=== PATIENT | male | born 1935 | race Caucasian/White ===

== ENCOUNTER 2023-07-22 09:22 | Inpatient (IN) | payer MEDICARE ==
[~2023-07-22] VITALS: Ht 180.3 cm; Wt 70.3 kg
[2023-07-22 10:48] LABS: BASOPHILS ABSOLUTE AUTO 0.11 K/mm3 (0.00-0.23); BASOPHILS PERCENT AUTO 1 % (0-2); EOSINOPHILS ABSOLUTE AUTO 0.12 K/mm3 (0.00-0.68); EOSINOPHILS PERCENT AUTO 1 % (0-6); Hematocrit 47.4 % (37.0-53.0); Hemoglobin 15.8 g/dL (13.5-17.5); IMMATURE GRAN ABSOLUTE AUTO 0.03 K/mm3 (0.00-0.10); IMMATURE GRAN PERCENT AUTO 0 % (0-1); LYMPHOCYTES PERCENT AUTO 17 % (21-46); MONOCYTES ABSOLUTE AUTO 0.72 K/mm3 (0.16-1.47); MONOCYTES PERCENT AUTO 8 % (4-13); Mean Corpuscular HGB 29.4 pg (26.0-34.0); Mean Corpuscular HGB Conc 33.3 g/dL (31.5-36.5); Mean Corpuscular Volume 88 fL (80-100); NEUTROPHILS PERCENT AUTO 73 % (41-73); Platelet Count 213 K/mm3 (150-400); RDW Coefficient Variation 13.5 % (11.7-14.2); RDW Standard Deviation 43.8 fL (35.1-46.3); Red Blood Cell Count 5.38 M/mm3 (4.30-5.90); White Blood Cell Count 9.08 K/mm3 (4.00-11.30)
[2023-07-22 10:57] LABS: Bun/Creatinine Ratio 19.8 (12.0-20.0); Calcium, Blood 8.8 mg/dL (8.5-10.1); Creatinine, Blood 1.01 mg/dL (0.60-1.20); Potassium, Blood 4.6 mmol/L (3.5-5.5)
[2023-07-22] MEDS ORDERED: OMEP20ER PO (13:38)
[2023-07-22] MEDS ORDERED: BENZONATATE100 MG PO (13:39)
--- NOTE | 2023-07-22 19:10 | NUR ---
Pt arrived to the room at approx 6 pm, chest tube noted in place, and to water seal with clear serosanginous drainage noted in the tubing. Pt was tachypneic at rest, and dyspneic with standing and transferring to the bed. Spo2 80% after the activity on room air. Oxygen was applied and his spo2 recovered to 99% , O2 delivery 3 l/min. On room air at rest spo2 was 93%. Oxygen titrated to 2 l/min to maintain spo2 greater than 93%. No creptus noted; however, lung sounds are diminished on the left side and with bialteral fine inspiratory crackles in the posterior bases. No cough. He remains tachypneic at rest, but able to easily carry on conversation and states that his pain level is 3/10. His Yadira is at the bedside. Pt declined any food but did get some cranberry juice and water per his request. Pt does not have any teeth. States that they were pulled last year and since then he has lost 80 pounds. He has dentures but does not wear them due to improper fit since his weight loss.
[2023-07-22 20:34] VITALS: BP 131/81
--- NOTE | 2023-07-22 22:18 | NUR ---
ASSUMPTION OF CARE ASSUMED CARE AT APPROX 1900. PT AOX4, PLEASANT, COOPERATIVE W/ CARE AND RECEPTIVE TO EDUCATION. [place]. DROWSY, EASILY AROUSABLE TO VERBAL STIMULI. AT BEDSIDE REPORTING THAT THE PT HAS NOT SLEPT FOR APPROX 3 DAYS. VSS. PT CURRENTLY ON 1L VIA NC WHILE SLEEPING, SATS >95%. BREATHING UNLABORED AT REST. CHEST TUBE PATENT, DRESSING C/D/I, NONFLUCTUATING, MINIMAL SEROSANGUINOUS DRAINAGE. REPORTS MILD, TOLERABLE, PAIN AT INSERTION SITE, PLAN TO MEDICATE PER EMAR PRN. TELEMETRY SHOWING SR 90'S. BP STABLE. VOIDING. BEDREST AT THIS TIME D/T RECENT CHEST TUBE PLACEMENT. AT BEDSIDE ASSISTING W/ CARE. CALL LIGHT IN REACH.
[2023-07-23 00:02] VITALS: BP 113/78
[2023-07-23 04:00] LABS: Hemoglobin 14.5 g/dL (13.5-17.5); Mean Corpuscular HGB 29.5 pg (26.0-34.0); Mean Corpuscular HGB Conc 33.7 g/dL (31.5-36.5); Mean Corpuscular Volume 88 fL (80-100); Mean Platelet Volume 8.1 fL (9.1-12.4); Platelet Count 165 K/mm3 (150-400); RDW Coefficient Variation 13.2 % (11.7-14.2); RDW Standard Deviation 42.8 fL (35.1-46.3); Red Blood Cell Count 4.91 M/mm3 (4.30-5.90); White Blood Cell Count 7.84 K/mm3 (4.00-11.30)
[2023-07-23 04:01] VITALS: BP 115/82
[2023-07-23 04:25] LABS: Bun/Creatinine Ratio 20.2 (12.0-20.0); Calcium, Blood 8.2 mg/dL (8.5-10.1); Creatinine, Blood 1.04 mg/dL (0.60-1.20); Potassium, Blood 4.2 mmol/L (3.5-5.5)
--- NOTE | 2023-07-23 04:48 | NUR ---
SHIFT SUMMARY NO ACUTE CHANGES SINCE ASSUMPTION OF CARE. PT REMAINED AOX4, SLEPT T/O SHIFT, EASILY AROUSABLE TO VERBAL STIMULI. VSS. TELEMETRY CONTINUING TO SHOW SR 80'S. PT ON 1L VIA NC WHILE SLEEPING, SATS >90%. DECREASED WORK OF BREATHING WHILE RESTING NOTED. CHEST TUBE REMAINED PATENT, MINIMAL SEROSANGUINOUS DRAINAGE. DRESSING C/D/I. VOIDING W/ URINAL. NO BM THIS SHIFT. AT BEDSIDE T/O, ASSISTING W/ CARE PRN. PT CURRENTLY RESTING W/ EYES CLOSED, RESPIRATIONS EVEN AND UNLABORED. NO SIGNS OF DISTRESS NOTED. WILL REPORT TO ONCOMING RN.
[2023-07-23 07:30] VITALS: BP 118/78
--- NOTE | 2023-07-23 08:13 | NUR ---
AM NOTE PT IS ALERT AND ORIENTED X 4, HE IS [place]. HIS IS AT BEDSIDE. CHEST TUBE IS CONNECTED TO LOW SUCTION W/ OCCASSIONAL BUBBLING OCCURING, IT APPEARS TO BE DRAINING SMALL AMOUNT OF RED OUTPUT. PT DENIES FEELINGS OF SOB, SPO2 96% VIA RA, LUNGS ARE CLEAR. CHEST XR STILL PENDING. CHEST TUBE IS LOCATED ON L CHEST WALL AND IS COVERED W/ DRESSING THAT IS D/C/I. HR AND BP STABLE. CALL LIGHT IS W/IN REACH.
[2023-07-23 10:53] VITALS: BP 111/68
[2023-07-23 15:59] VITALS: BP 116/79
--- NOTE | 2023-07-23 16:48 | NUR ---
SHIFT SUMMARY PT IS ALERT AND ORIENTED X 4, HE IS HARD OF HEARING AND IS ABLE TO MAKE HIS NEEDS KNOWN. BP AND HR STABLE, SPO2 MAINTAINED >95% VIA RA, PER NOC RN REPORT PT NEEDED 1-2 L VIA NC TO MAINTAIN 02 >95%. CHEST TUBE IS CONNECTED TO SUCTION PER EMAR ORDERS AND IS DRAINING SMALL AMOUNT OF SANGUINEOUS OUTPUT. PT DENIES FEELINGS OF PAIN AT CHEST TUBE INSERTION SITE, SITE IS FREE OF CREPITUS AND IS COVERED W/ ADHESIVE SURGICAL DRESSING THAT IS D/C/I. PT DENIES FEELINGS OF CHEST PAIN/PRESSURE, FEELING SOB, LIGHTHEADED/DIZZY WELL NAUSEA. HE HAS USED THE BEDSIDE URINAL WELL THE BEDSIDE COMMODE TO VOID. HE WAS A SBA TO COMMODE AND IS NOW SITTING UP IN RECLINER CHAIR. IV IS SALINE LOCKED. PT NOW APPEARS TO BE SLEEPING COMFORTALBY IN RECLINER CHAIR. CALL LIGHT IS W/IN REACH.
[2023-07-23 19:50] VITALS: BP 114/73
[2023-07-24 00:59] VITALS: BP 109/72
[2023-07-24 04:11] VITALS: BP 99/74
--- NOTE | 2023-07-24 06:03 | NUR ---
End of shift note. Pt has rested for much of the shift. No complaints of pain or SOB. CT remains patent to suction. Pt was on 1L O2 when staff arrived, Pt was shortly able to wean to room air and has remained on room air all shift. Pt is able to make needs known, call light is within reach.
[2023-07-24 08:14] VITALS: BP 117/73
[2023-07-24 15:20] VITALS: BP 90/71
--- NOTE | 2023-07-24 16:32 | NUR ---
SHIFT SUMMARY PT A&OX4, [place]. SP02>90% ON RA. 2L NC FOR COMFORT WHILE EATING PER PT REQUEST FOR COMFORT. CHEST TUBE TO SUCTION. PT DENIES SOB. THIMBLE PRESS OPERATOR IN ROOM TO ASSESS THIS SHIFT. THIMBLE PRESS OPERATOR W/ ORDERS FOR CHEST CT. SEE RESULTS. MD LOZANO IN ROOM TO ASSESS. MD LOZANO W/ ORDERS TO MAKE PT MEDICAL STATUS NO TELE. PT UP IN RECLINER MOST OF SHIFT. IN ROOM THIS AFTERNOON TO VISIT. CALL LIGHT IN REACH.
[2023-07-24 20:45] VITALS: BP 111/73
[2023-07-25 04:50] VITALS: BP 115/76
--- NOTE | 2023-07-25 05:33 | NUR ---
End of shift note. Pt seems to have had a decent amount of sleep overnight. No complaints of pain or SOB. CT remains to suction, minimal output. PO intake has been encouraged overnight. is at bedside. Pt able to make needs known, call light is within reach.
[2023-07-25 15:38] VITALS: BP 117/66
--- NOTE | 2023-07-25 17:59 | NUR ---
SHIFT SUMMARY; ASSUMED CARE AT 0700, A/A/OX4. PLEASANT AND COOPERATIVE WITH CARE. REPOSITIONS SELF IN BED, UP TO BEDSIDE COMMODE INDEPENDANTLY. SPOUSE AT BEDSIDE. CHEST TUBE IN PLACE TO LOW SUCTION TO WATER SEAL, NO CREPITIS, DRESSING C/D/I. WILL CONTINUE TO MONITOR AND TREAT UNTIL CHANGE OF SHIFT.
[2023-07-25 21:00] VITALS: BP 127/77
[2023-07-26 03:25] VITALS: BP 110/71
[2023-07-26 04:05] LABS: BASOPHILS ABSOLUTE AUTO 0.11 K/mm3 (0.00-0.23); BASOPHILS PERCENT AUTO 1 % (0-2); EOSINOPHILS ABSOLUTE AUTO 0.42 K/mm3 (0.00-0.68); EOSINOPHILS PERCENT AUTO 5 % (0-6); Hematocrit 44.2 % (37.0-53.0); Hemoglobin 14.9 g/dL (13.5-17.5); IMMATURE GRAN ABSOLUTE AUTO 0.04 K/mm3 (0.00-0.10); IMMATURE GRAN PERCENT AUTO 1 % (0-1); LYMPHOCYTES ABSOLUTE AUTO 1.98 K/mm3 (0.84-5.20); LYMPHOCYTES PERCENT AUTO 25 % (21-46); MONOCYTES PERCENT AUTO 9 % (4-13); Mean Corpuscular HGB 29.3 pg (26.0-34.0); Mean Corpuscular HGB Conc 33.7 g/dL (31.5-36.5); Mean Corpuscular Volume 87 fL (80-100); Mean Platelet Volume 7.9 fL (9.1-12.4); NEUTROPHILS ABSOLUTE AUTO 4.75 K/mm3 (1.96-9.15); NEUTROPHILS PERCENT AUTO 59 % (41-73); Platelet Count 187 K/mm3 (150-400); RDW Coefficient Variation 12.9 % (11.7-14.2); RDW Standard Deviation 40.7 fL (35.1-46.3); Red Blood Cell Count 5.09 M/mm3 (4.30-5.90)
[2023-07-26 05:54] LABS: Bun/Creatinine Ratio 23.4 (12.0-20.0); Calcium, Blood 8.6 mg/dL (8.5-10.1); Creatinine, Blood 0.9 mg/dL (0.60-1.20); Potassium, Blood 4.3 mmol/L (3.5-5.5)
--- NOTE | 2023-07-26 06:21 | NUR ---
SHIFT SUMMARY PATIENT ALERT AND ORIENTED X4, HARD OF HEARING, INDEPENDENT TO THE BEDSIDE COMMODE. HAD NO COMPLAINTS OF PAIN. BECOMES DYSPNIC WITH ACTIVITY, SPO2 >90% ON 4 LITERS O2 VIA NC. VITAL SIGNS STABLE. MINIMAL DRAINAGE NOTED FROM CHEST TUBE. NO ACUTE ISSUES NOTED OVERNIGHT. WILL CONTINUE TO MONITOR. CALL LIGHT WITHIN REACH.
[2023-07-26 07:31] VITALS: BP 94/66
--- NOTE | 2023-07-26 10:13 | NUR ---
87 year old male admitted to the hospital for Pnuemothorax. Pt's medical history and comorbidities include: Pulmonary Fibrosis, and Prostated Cancer (untreated). Spoke with Primary RN Deonna and discussed case. Pt's Pnuemothorax is not improving. Webbing Inspector presented options to Pt. Pt is expressing wanting to go home. Options are remaining in the hospital to allow more time for improvement of pneumothorax, 2nd chest tube placement, thoravent placement, or hospice. Pt resting in bed and is A&OX4. Pt's spouse is at bedside. Engaged in therapeutic discussion regarding goals of care. Pt reports noticing a decline in his health and ability to do things over a significant amount of time now. Pt states knowing his time is short. Pt does report wanting to get home and does not want to remain in the hospital to see if his pneumothorax improves. He states being told chances are low. Discussed options. Pt is reporting wanting the thoravent. Discussed considering hospice along with thoravent if appropriate. Pt will consider. Pt reports having a daughter who lives out of state and spouse has a son who lives in [place]. Called and spoke with hospice agencies and discussed thoravent. Agencies to get back with this RN. Palliative Care will remain available
--- NOTE | 2023-07-26 12:30 | NUR ---
F/U supportive visit. Joint visit with Primary RNs. Options discussed further including remaining in the hospital, additional chest tube, and thoravent. Discussed considering hospice if Pt elects going home with thoravent. Primary RN discusses further regarding choices and encourages Pt to discuss further with spouse. If Pt chooses, [facility] is willing to admit Pt onto services with thoravent. Palliative Care will remain available
--- NOTE | 2023-07-26 15:17 | NUR ---
TRANSFER NOTE: REPORT OF PT CARE GIVEN TO QUINTEN SANTILLAN. PT TRANSPORTED UPSTAIRS BY 2 CNAS. PT AND FAMILY HAVE BEEN EDUCATED ABOUT THE CHANGE IN STATUS AND ROOM ROOM. NO QUESTIONS OR CONCERNS AT THIS TIME.
[2023-07-26 15:38] VITALS: BP 101/74
--- NOTE | 2023-07-26 17:53 | NUR ---
SHIFT SUMMARY; ARMANDO ARRIVED TO MED FLOOR FROM PCU THIS LATE AFTERNOON. HE IS AO X 4 ON ARRIVAL. COMES VIA WHEEL CHAIR. PLEUROVAC INTACT TO LOW INTERMITTENT SUCTION. CHEST TUBE SITE CLEAN DRY AND SMALL AIR LEAK NOTED. PER REPORT FAMILY MAY BE DECIDING ON COMFORT CARE AND HOSPICE. SPOUSE WILL SREMAIN AT BEDSIDE AND ASSIST ARMANDO TO BEDSIDE COMMODE AND BACK. IV TO LEFT AC REINFORCED WITH PAPERTAPE. NO SKIN ISSUES NOTED OTHER THAN CHEST TUBE SITE. SCATTERED SCABS AND DISCOLATION TO LOWER EXTREMEITIES. VITAL SIGNS WNL ON ARRIVAL. WILL REMAIN AVAILABLE FOR THIS PATIENT FOR ANY WANTS OR NEEDS THAT COME UP PRIOR TO REPORT AT SHIFT CHANGE TO NOC SHIFT RN.
[2023-07-26 19:18] VITALS: BP 106/61
[2023-07-27 02:45] VITALS: BP 98/60
--- NOTE | 2023-07-27 05:53 | NUR ---
SHIFT SUMMARY BEDSIDE REPORT DONE, PT LAYING IN BED, CHEST TUBE IN PLACE- PT TOOK SCHEDULED HS MEDS WITHOUT PROBLEMS, PT AT BEDSIDE, PT SLEPT T/O NIGHT WITHOUT C/O PAIN, NO S/S SOB- PT USED CALL LIGHT APPROPRIATELY, 0400 PT SITTING UP IN BED VISITING WITH - CHEST TUBE OUTPUT = 35ML IN SHIFT SS OUTPUT- CHEST TUBE BANDAGE TO LEFT SIDE = C/D&I-
[2023-07-27 07:17] VITALS: BP 102/68
--- NOTE | 2023-07-27 10:19 | NUR ---
Brief supportive visit. RN Consumer Loan Specialist Sravani at bedside discussing D/C options. Pt has elected to pursue AIM program through [place]. Eliana will coordinate D/C plan. No concerns reported. Ended visit to allow Sravani to continue conversation. Palliative Care will remain available
[2023-07-27] MEDS ORDERED: GUAI600T33 PO (10:56)
[2023-07-27] MEDS ORDERED: ALBU2.5V5 INH (10:56)
[2023-07-27] MEDS ORDERED: IPRAT-ALBUT 0.5-3 ML INH (10:57)
--- NOTE | 2023-07-27 12:24 | NUR ---
PALLIATIVE CARE, FARM FACILITY MANAGER, HOSPITALIST, AND RN AT BEDSIDE. CLARIFICATION NEEDED WITHIN THE TEAM ABOUT REMOVAL OF CHEST TUBE, WHAT TO EXPECT UPON REMOVAL, DISCHARGE DISPOSION AND NEEDS AFTER DISCHARGE. CONVERSATION ABOUT POSSIBILITY OF IMENINT AFTER REMOVAL OF THE CHEST TUBE. PATIENT AND SPOUSE VERBALISE UNDERSTANDING OF RISKS. COMFORT CARE ORDERS PLACED. PT WILL GO HOME WITH HOSPICE PENDING SET UP. TUBE IS REMOVED. PT IS SITTING UP IN BED EATING, SPOUSE IS AT BEDSIDE. PT DENIES PAIN AT THIS TIME
--- NOTE | 2023-07-27 13:08 | NUR ---
F/U visit this afternoon. Molder Sweep at bedside discussing plan to D/C chest tube. He explains risks and consequences to D/C of chest tube. Pt and spouse verbalizes understanding. Pt reports wishes remain the same and would like chest tub pulled. This RN discussed potential plan for home with hospice pending response to D/C of chest tube. discovery guide Odette places comfort care order and comfort care order set per V/O from Molder Sweep. Spoke with RN Tool And Die Inspector Maggy and discussed case. Referrals for hospice has been sent out to agencies. Palliative Care will remain available
--- NOTE | 2023-07-27 13:25 | NUR ---
PT SITTING UP IN BED CONVERSING WITH . DENIES PAIN. REPORTS SOB AND COUGH. SPO2 85% 5L
--- NOTE | 2023-07-27 15:45 | NUR ---
Spiritual care visit conducted. Patient is lying in bed and alert. His spouse, Yadira is bedside. They tell stories about his medical history, his tammy journey and how they met and 37 yrs ago. We talk about patient's beliefs about the afterlife, and the peace he has about and dying. He tells me his concerns about how Yadira will do without him, especially with her inability to drive (due to a stroke several years ago). I conduct a life review, normalize their fears and feelings and provide therapeutic listening, theological insights, gentle guidance counselor and prayer. Patient and Yadira reponded well and showed signs of being comforted. They both voice much appreciation for the time and care. I will continue to remian available to patient and family.
--- NOTE | 2023-07-27 16:27 | NUR ---
SHIFT SUMMARY PT IS ALERT AND ORIENTED X4. PT WAS UP TO THE BEDSIDE COMMODE. SEVERE DYSPNEA. 88% ON 5L. DENIES DISCOMFORT OTHER THAN WHEN HE COUGHS. PT DECLINED NEED TO FOR MORPHINE. INFORMED PATIENT THAT MORPHINE ALSO DECREASED NEED FOR O2. PT RESPECTFULLY DECLINES MEDICATION AT THIS TIME. SPOUSE IS AT BEDSIDE. BOTH SEEM TO BE IN GOOD SPIRITS. PT IS ABLE TO MAKE NEEDS KNOWN HOWEVER I AM WORRIED HE IS BEING STOIC.
--- NOTE | 2023-07-28 05:22 | NUR ---
SHIFT SUMMARY PT LAYING IN BED AND AT BESIDE DURING BEDSIDE REPORT- PT SOB WHILE TALKING- EDUCATED PT OF MORPHINE AND AIR HUNGER, PT REPORTED FEELING GOOD AT THAT TIME - PT COMPLAINED OF INCREASED SECRETIONS- SCOLOPAMINE PATCH APPLIED TO BEHIND RIGHT EAR- PT SWALLOWED MUCINEX WITHOUT PROBLEMS- 0005 GAVE ROXANOL 5MG - PT USED CALL LIGHT AND REQUESTED FOR AIR HUNGER- PT TOLERATED ROXANOL WELL, PT UP TO BSC AND HAD DECREASED SOB WITH ACITIVITY
--- NOTE | 2023-07-28 08:01 | NUR ---
Spiritual care visit conducted. Patient is lying in bed and alert. Yadira, Pt's spouse, is bedside. They explain about their hopes to get the patient home today on hospice and that they are just waiting for medical equipment to be delivered. They talk about the solid sleep that they both got last night and that they are refreshed to make the journey home. They talk about the gratitude they have to be able to enjoy this day together. I celebrate this victory with them and provide a prayer of thanksgiving and gratitude and also a blessing as they work on the d/c today. Patient and spouse voice their appreciation for the spiritual care given. I willcontinue to remain available to patient and family
--- NOTE | 2023-07-28 10:19 | NUR ---
Brief supportive visit. Pt trasfering from bed to transport chair as he is D/C home with hospice. Pt reports no concerns at this time. Palliative Care will remain available
--- NOTE | 2023-07-28 10:38 | NUR ---
DISCHARGE PT DISCHARGED HOME WITH HOSPICE. FAMILY AT BEDSIDE. PT HAS OWN O2 CONCENTRATOR. LEFT ALERT AND ORIENTED X4. 4L NC. SBA.
== END 2023-07-28 10:34 | disposition home or self-care (01) | DRG 199 ==
LOC: ER 09:22 → PCU 09:23 → ERHOLD 09:23 → PCU 16:58 → MEDS 07-26 15:26 → ENPENDDIS 07-27 11:07 → MEDS 07-28 10:34
PROVIDERS: Internal Medicine; Student in an Organized Health Care Education/Training Program; ADMIT Internal Medicine
PROC: 0W9B30Z Drainage of Left Pleural Cavity with Drainage Device, Percutaneous Approach (ICD-10-PCS; principal; 2023-07-23)
DX: J93.9 Pneumothorax, unspecified (principal); J96.01 Acute respiratory failure with hypoxia; K21.9 Gastro-esophageal reflux disease without esophagitis; J84.112 Idiopathic pulmonary fibrosis; Z66 Do not resuscitate; N40.0 Benign prostatic hyperplasia without lower urinary tract symptoms; J43.9 Emphysema, unspecified; Z85.46 Personal history of malignant neoplasm of prostate; Z87.01 Personal history of pneumonia (recurrent); Z98.890 Other specified postprocedural states; Z79.899 Other long term (current) drug therapy
CPT/HCPCS: 32551; 36415; 71045; 71250; 80048; 85025; 85027; 93005; 93010; 94760; 94762; 99285-25; A9270; J1650; J2405; J3010